=== PATIENT | female | born 1965 | race Caucasian/White ===

== ENCOUNTER 2017-05-16 23:11 | Emergency (ER) | payer OTHER ==
[2017-05-16 23:33] VITALS: TEMP 99.1; BMI 19.3
--- NOTE | 2017-05-16 23:40 | PDOC ---
History of Present Illness - General History Source: Patient Exam Limitations: No Limitations <Claudia Solis - Last Filed: 05/16/17 23:53> - General History Source: Patient <Max Hutson - Last Filed: 05/17/17 01:18> - General Chief Complaint: Palpitations Stated Complaint: CHEST PAIN Time Seen by Provider: 05/16/17 23:26 - History of Present Illness Initial Comments: The patient is a 51 yo F with a PMHx of hyperthyroidism complaining of chest discomfort since earlier today. The patient notes the pain ranges from the L sternal border to L arm.The patient reports during the last 6 months she has had pretty stressful triggers. She notes that shes recently had poor eating habits. She also notes shes been over consuming ETOH and not resting well. She also endorses nausea and slight SOB. She reports she is compliant with her thyroid medications. Upon evaluation, patient reports she is still having slight discomfort. The patient denies vomiting, diarrhea and abdominal pain. The patient denies lightheadedness and palpitations. (Claudia Solis) Past History <Claudia Solis - Last Filed: 05/16/17 23:53> - Past Medical History Thyroid Disease: Yes - Psycho/Social/Smoking Cessation Hx Anxiety: No Suicidal Ideation: No Smoking Status: No Smoking History: Never smoked Have you smoked in the past 12 months: No Number of Cigarettes Smoked Daily: 0 Information on smoking cessation initiated: No Hx Alcohol Use: No Drug/Substance Use Hx: No <Max Hutson - Last Filed: 05/17/17 01:18> - Past Medical History Allergies/Adverse Reactions: Allergies Allergy/AdvReac Type Severity Reaction Status Date / Time azithromycin [From Zithromax] Allergy Rash Verified 05/16/17 23:31 cefprozil [Cefprozil] Allergy Rash Verified 05/16/17 23:31 Home Medications: Ambulatory Orders Unobtainable Home Med List 0 dose .ROUTE UTDICT 05/10/14 Review of Systems - Review of Systems Able to Perform ROS?: Yes <Claudia Solis - Last Filed: 05/16/17 23:53> <OsieljassraMax - Last Filed: 05/17/17 01:18> - Review of Systems Comments:: CONSTITUTIONAL: Absent: fever, chills, diaphoresis, generalized weakness, malaise, loss of appetite HEENT: Absent: rhinorrhea, nasal congestion, throat pain, throat swelling, difficulty swallowing, mouth swelling, ear pain, eye pain, visual Changes CARDIOVASCULAR: +chest pain Absent: syncope, palpitations, irregular heart rate, lightheadedness, peripheral edema RESPIRATORY: +SOB Absent: cough, dyspnea with exertion, orthopnea, wheezing, stridor, hemoptysis GASTROINTESTINAL: +nausea Absent: abdominal pain, abdominal distension, vomiting, diarrhea, constipation, melena, hematochezia GENITOURINARY: Absent: dysuria, frequency, urgency, hesitancy, hematuria, flank pain, genital pain MUSCULOSKELETAL: Absent: myalgia, arthralgia, joint swelling SKIN: Absent: rash, itching, pallor NEUROLOGIC: Absent: headache, focal weakness or paresthesias, dizziness, unsteady gait, seizure, mental status changes, bladder or bowel incontinence PSYCHIATRIC: Absent: anxiety, depression, suicidal or homicidal ideation, hallucinations. (Claudia Solis) *Physical Exam <Claudia Solis - Last Filed: 05/16/17 23:53> <Max Hutson - Last Filed: 05/17/17 01:18> - Vital Signs Last Vital Signs Temp Pulse Resp BP Pulse Ox 99.1 F 84 14 120/82 100 05/16/17 23:31 05/16/17 23:31 05/16/17 23:31 05/16/17 23:31 05/16/17 23:31 - Physical Exam Comments: GENERAL: Well developed, well nourished. Awake and alert. No acute distress. HEENT: Normocephalic, atraumatic. PERRLA, EOMI. No conjunctival pallor. Sclera are non- icteric. Moist mucous membranes. Oropharynx is clear. NECK: Supple. Full ROM. No JVD. Carotid pulses 2+ and symmetric, without bruits. No thyromegaly. No lymphadenopathy. CARDIOVASCULAR: Regular rate and rhythm. No murmurs, rubs, or gallops. Distal pulses are 2+ and symmetric. PULMONARY: No evidence of respiratory distress. Lungs clear to auscultation bilaterally. No wheezing, rales or rhonchi. ABDOMINAL: Soft. Non-tender. Non-distended. No rebound or guarding. No organomegaly. Normoactive bowel sounds. MUSCULOSKELETAL Normal range of motion at all joints. No bony deformities or tenderness. No CVA tenderness. EXTREMITIES: No cyanosis. No clubbing. No edema. No calf tenderness. SKIN: Warm and dry. Normal capillary refill. No rashes. No jaundice. NEUROLOGICAL: no gross focal neurological deficits. PSYCHIATRIC: Cooperative. Good eye contact. Appropriate mood and affect. (ShayjonnaClaudia) Heart Score/ECG Review <Claudia Solis - Last Filed: 05/16/17 23:53> <Max Hutson - Last Filed: 05/17/17 01:18> #1 NSR @ [address] and T wave abnormality. Abnormal ECG. (Shayjonna Claudia) ED Treatment Course - LABORATORY CBC & Chemistry Diagram: 05/17/17 00:01 05/17/17 00:01 <Max Hutson - Last Filed: 05/17/17 01:18> - ADDITIONAL ORDERS Additional order review: Laboratory Results 05/17/17 05/17/17 05/17/17 00:01 00:01 00:01 INR 1.12 Sodium 138 Potassium 4.4 D Chloride 102 Carbon Dioxide 29 Anion Gap 7 L BUN 10 D Creatinine 0.6 Creat Clearance w eGFR > 60 Random Glucose 134 H D Calcium 8.9 Magnesium 2.3 Total Bilirubin 0.8 D AST 18 ALT 23 Alkaline Phosphatase 50 D Creatine Kinase 48 Troponin I < 0.02 Total Protein 6.8 Albumin 3.8 Lipase 99 Serum , Qual Negative 05/17/17 00:01 RBC 3.89 MCV 93.9 MCHC 33.0 RDW 13.8 MPV 8.3 Neutrophils % 65.8 D Lymphocytes % 22.7 D Monocytes % 9.1 Eosinophils % 1.7 Basophils % 0.7 - RADIOLOGY Radiology Studies Ordered: Category Date Time Status CHEST X-RAY PORTABLE* [RAD] Stat Radiology 05/16/17 23:41 Taken - Medications Given in the ED: ED Medications Discontinued Medications Generic Name Dose Route Start Last Admin Trade Name Freq PRN Reason Stop Dose Admin Famotidine/Sodium Chloride 20 50 mls @ 100 mls/hr 05/16/17 23:41 05/17/17 00:03 mg/ Miscellaneous IVPB 05/17/17 00:10 100 mls/hr ONCE ONE Administration Sodium Chloride 1,000 mls @ 1,000 mls/hr 05/16/17 23:42 05/17/17 00:03 Normal Saline - IV 05/17/17 00:41 1,000 mls/hr ASDIR STA Administration Medical Decision Making <ChrisClaudia nelson - Last Filed: 05/16/17 23:53> <Max Hutson - Last Filed: 05/17/17 01:18> - Medical Decision Making 05/17/17 01:12 Dr. Hutson: The scribe's documentation has been prepared under my direction and personally reviewed by me in its entirery. I confirm that the note above accurately reflects all work, treatment, procedures, and medical decision making performed by me. Pt feeling better. Hemodynamically stable. NO St twave changes on EKG. CE negative. Pt will be discharge and will follow up with medicine for re- evaluation. (Max Hutson) *DC/Admit/Observation/Transfer <IrmaClaudia - Last Filed: 05/16/17 23:53> - Discharge Dispostion Admit: No <Max Hutson - Last Filed: 05/17/17 01:18> Diagnosis at time of Disposition: Chest pain Qualifiers: Chest pain type: unspecified Qualified Code(s): R07.9 - Chest pain, unspecified - Discharge Dispostion Disposition: HOME Condition at time of disposition: Stable - Referrals Referrals: Monroe Barber MD [Staff Physician] - Devora Holden MD [Staff Physician] - - Patient Instructions Printed Discharge Instructions: DI for Chest Pain - Attestations Scribe Attestion: Documentation prepared by Claudia Solis, acting as medical affairs leader for Max Hutson MD/DO. (Claudia Solis)
[2017-05-16] MEDS ORDERED: FAMOTIDINE 20 MG/50 ML IVPB 20 MG in PREMIX 50 IVPB ONE (23:41)
[2017-05-16] MEDS ORDERED: SODIUM CHLORIDE 1,000 ML IV STA (23:42)
[2017-05-16] MEDS ORDERED: FAMOTIDINE 20 MG/50 ML IVPB 50 ML IVPB ONE (23:52)
[2017-05-17 00:19] LABS: BASOPHIL 0.7 % (0-2.0); EOSINOPHIL 1.7 % (0-4.5); MEAN CELL VOLUME 93.9 fl (80-96); MEAN PLT VOLUME 8.3 fl (7.5-11.1); NEUTROPHILS 65.8 % (42.8-82.8); PLATELET COUNT 203 K/MM3 (134-434); RDW 13.8 % (11.6-15.6); WHITE BLOOD COUNT 4.1 K/mm3 (4.0-10.0)
[2017-05-17 00:35] LABS: INR 1.12 (0.82-1.09); PROTHROMBIN TIME (PATIENT) 12.4 SEC (9.98-11.88)
[2017-05-17 00:42] LABS: ALBUMIN 3.8 g/dl (3.4-5.0); ANION GAP 7 (8-16); BILIRUBIN,TOTAL 0.8 mg/dL (0.2-1.0); CALCIUM 8.9 mg/dL (8.5-10.1); CO2 29 mmol/L (21-32); CREATININE 0.6 mg/dL (0.55-1.02); GLUCOSE,RANDOM 134 mg/dL (74-106); MAGNESIUM 2.3 mg/dL (1.8-2.4); SGOT/AST 18 U/L (15-37); SGPT/ALT 23 U/L (12-78); TOT PROT 6.8 g/dl (6.4-8.2)
[2017-05-17 00:45] LABS: ALK PHOS 50 U/L (45-117); TROPONIN I < 0.02 ng/ml (0.00-0.05)
[2017-05-17] MEDS ORDERED: PANTOPRAZOLE 40 MG TABLET (FP) PO ONE (01:11)
[2017-05-17] MEDS ORDERED: PANTOPRAZOLE 40 MG TABLET (FP) ONE (01:16)
[2017-05-17] MEDS ORDERED: ALPRAZolam 0.25 MG TABLET PO ONE (01:19)
[2017-05-17] MEDS ORDERED: ALPRAZolam 0.25 MG TABLET ONE (02:20)
[2017-05-17 02:37] VITALS: BP 108/66; PULSE 77
--- NOTE | 2017-05-17 16:33 | EKG ---
Test Reason : Blood Pressure : / mmHG Vent. Rate : 083 BPM Atrial Rate : 083 BPM P-R Int : 114 ms QRS Dur : 076 ms QT Int : 384 ms P-R-T Axes : 028 085 028 degrees QTc Int : 451 ms NORMAL SINUS RHYTHM NONSPECIFIC ST AND T WAVE ABNORMALITY ABNORMAL ECG WHEN COMPARED WITH ECG OF 10-MAY-2014 04:59, NO SIGNIFICANT CHANGE WAS FOUND Confirmed by ROSALVA SOMMERS MD ([id number]) on 05/17/2017 4:33:44 PM Referred By: Confirmed By:ROSALVA SOMMERS MD
== END 2017-05-17 02:33 | disposition home or self-care (01) ==
LOC: JER 23:11
PROC: 3E033GC Introduction of Other Therapeutic Substance into Peripheral Vein, Percutaneous Approach (ICD-10-PCS; principal; 2017-05-16)
PROC: 3E0337Z Introduction of Electrolytic and Water Balance Substance into Peripheral Vein, Percutaneous Approach (ICD-10-PCS; 2017-05-16)
DX: R07.9 Chest pain, unspecified (principal); E05.90 Thyrotoxicosis, unspecified without thyrotoxic crisis or storm
CPT/HCPCS: 36415; 71010-TC; 80053; 82550; 83690; 83735; 84484; 84703; 85025; 85610; 93005; 93010; 99282-25

== ENCOUNTER 2020-06-24 14:56 | Emergency (ER) | payer OTHER ==
[2020-06-24 15:01] VITALS: BP 102/55; PULSE 87; TEMP 98.3; BMI 19.5
[2020-06-24] MEDS ORDERED: NAPROXEN 500 MG TABLET PO ONE (15:33)
[2020-06-24] MEDS ORDERED: NAPROXEN 500 MG TABLET ONE (15:36)
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
== END 2020-06-24 15:41 | disposition home or self-care (01) ==
LOC: JERFT 14:56
DX: S13.4XXA Sprain of ligaments of cervical spine, initial encounter (principal); V89.2XXA Person injured in unspecified motor-vehicle accident, traffic, initial encounter
CPT/HCPCS: 99283-25

== ENCOUNTER 2022-03-14 13:30 | Inpatient (IN) | payer OTHER ==
[2022-03-14] MEDS ORDERED: SODIUM CHLORIDE 0.9% 500 ML INFUS.BAG IV ONE (14:21)
[2022-03-14] MEDS ORDERED: ACETAMINOPHEN 1000 MG/100 ML BAG IVPB ONE ×2 (14:21→20:40)
[2022-03-14] MEDS ORDERED: ACETAMINOPHEN INJECTION 100 ML IVPB ONE ×2 (15:05→20:51)
[2022-03-14 15:15] LABS: BASO % 0.4 % (0-2.0); EOS % 0.9 % (0-4.5); HEMATOCRIT 37.8 % (32.4-45.2); HEMOGLOBIN 12.6 GM/dL (10.7-15.3); LYMPH % 13.6 % (8-40); MCH 30.4 pg (25.7-33.7); MCHC 33.4 g/dl (32.0-36.0); MEAN CELL VOLUME 91.1 fl (80-96); MEAN PLT VOLUME 7.9 fl (7.5-11.1); NEUT % 78.1 % (42.8-82.8); PLATELET COUNT 218 10^3/uL (134-434); RBC 4.15 M/mm3 (3.60-5.2); RDW 12.9 % (11.6-15.6); WHITE BLOOD COUNT 7.5 K/mm3 (4.0-10.0)
[2022-03-14 15:45] LABS: ALBUMIN 3.7 g/dl (3.4-5.0); CALCIUM 9.1 mg/dL (8.5-10.1)
[2022-03-14 15:47] LABS: CREATININE 0.6 mg/dL (0.55-1.3)
[2022-03-14 15:49] LABS: BILIRUBIN,TOTAL 0.8 mg/dL (0.2-1); TOT PROT 6.6 g/dl (6.4-8.2)
[2022-03-14 16:42] LABS: URINE APPEARANCE CLEAR; URINE BILIRUBIN NEGATIVE (NEGATIVE); URINE COLOR YELLOW; URINE GLUCOSE (UA) NEGATIVE (NEGATIVE); URINE KETONE TRACE (NEGATIVE); URINE LEUK ESTERASE NEGATIVE (NEGATIVE); URINE NITRITE NEGATIVE (NEGATIVE); URINE PROTEIN NEGATIVE (NEGATIVE); URINE UROBILINOGEN 0.2 mg/dL (0.2-1.0)
[2022-03-14] MEDS ORDERED: ERTAPENEM SODIUM 1 GM in SODIUM CHLORIDE 50 ML IVPB ONE (20:02)
[2022-03-14] MEDS ORDERED: ERTAPENEM SODIUM 1 GM VIAL ONE (20:29)
[2022-03-14] MEDS ORDERED: ACETAMINOPHEN 1000 MG/100 ML BAG IVPB PRN (22:04)
[2022-03-14] MEDS ORDERED: FAMOTIDINE 20 MG/50 ML IVPB 20 MG/50 ML MG IVPB ONE (22:07)
[2022-03-14] MEDS ORDERED: FAMOTIDINE 10 MG/ML VIAL IVPB ONE (22:44)
[2022-03-14] MEDS: SODIUM CHLORIDE 1,000 ML IV SCH (22:58)
[2022-03-15 04:39] VITALS: BMI 20.3
[2022-03-15 08:44] LABS: BASO % 0.2 % (0-2.0); EOS % 1.5 % (0-4.5); HEMATOCRIT 34.3 % (32.4-45.2); HEMOGLOBIN 11.3 GM/dL (10.7-15.3); LYMPH % 17.7 % (8-40); MCH 30.4 pg (25.7-33.7); MEAN PLT VOLUME 7.8 fl (7.5-11.1); MONO % 6.4 % (3.8-10.2); NEUT % 74.2 % (42.8-82.8); PLATELET COUNT 178 10^3/uL (134-434); RBC 3.73 M/mm3 (3.60-5.2); WHITE BLOOD COUNT 4.9 K/mm3 (4.0-10.0)
[2022-03-15] MEDS ORDERED: TRIMETHOBENZAMIDE HCL 200MG/2ML INJ IM PRN (08:53)
[2022-03-15 09:04] LABS: ACTIVATED PTT 31.7 SECONDS (25.2-36.5); INR 1.24 (0.83-1.09); PROTHROMBIN TIME (PATIENT) 14.3 SEC (9.7-13.0)
[2022-03-15 09:07] LABS: BLOOD UREA NITROGEN 14.8 mg/dL (7-18)
[2022-03-15 09:08] LABS: ALBUMIN 3.3 g/dl (3.4-5.0); CALCIUM 8.4 mg/dL (8.5-10.1); MAGNESIUM 2.1 mg/dL (1.8-2.4)
[2022-03-15 09:10] LABS: PHOSPHOROUS 3.7 mg/dL (2.5-4.9)
[2022-03-15 09:11] LABS: CREATININE 0.5 mg/dL (0.55-1.3)
[2022-03-15 09:12] LABS: TOT PROT 6.1 g/dl (6.4-8.2)
[2022-03-15] MEDS: PANTOPRAZOLE SODIUM 40 MG VIAL IVPUSH SCH (11:19)
[2022-03-15] MEDS: ERTAPENEM SODIUM 1 GM in SODIUM CHLORIDE 50 ML IVPB SCH (17:59)
[2022-03-15] MEDS ORDERED: DEXTROSE 50%-WATER - 25 GM/50 ML VIAL IVPUSH ONE (18:18)
[2022-03-15] MEDS ORDERED: DEXTROSE 10%-WATER 500 ML INFUS.BAG IV ONE (18:22)
[2022-03-15] MEDS ORDERED: DEXTROSE 10%-WATER - 1,000 ML IV SCH (18:30)
[2022-03-15] MEDS ORDERED: ALPRAZolam 1 MG TABLET PO ONE (18:43)
[2022-03-15] MEDS ORDERED: PROCHLORPERAZINE INJECTION 10 MG/2 ML VIAL IVPB ONE (19:20)
[2022-03-15] MEDS: DEXTROSE 5%-NORMAL SALINE 1,000 ML IV SCH (21:56)
[2022-03-16] MEDS: SODIUM CHLORIDE 1,000 ML IV SCH (03:42)
[2022-03-16 09:25] LABS: BASO % 0.2 % (0-2.0); EOS % 2.4 % (0-4.5); HEMATOCRIT 33.6 % (32.4-45.2); HEMOGLOBIN 11.5 GM/dL (10.7-15.3); MCHC 34.4 g/dl (32.0-36.0); MEAN CELL VOLUME 90.2 fl (80-96); MEAN PLT VOLUME 7.8 fl (7.5-11.1); NEUT % 55.4 % (42.8-82.8); PLATELET COUNT 202 10^3/uL (134-434); RBC 3.72 M/mm3 (3.60-5.2); RDW 12.8 % (11.6-15.6); WHITE BLOOD COUNT 3.6 K/mm3 (4.0-10.0)
[2022-03-16 09:47] LABS: CALCIUM 8.6 mg/dL (8.5-10.1)
[2022-03-16 09:49] LABS: ALBUMIN 3.2 g/dl (3.4-5.0); BLOOD UREA NITROGEN 7.7 mg/dL (7-18); MAGNESIUM 2.2 mg/dL (1.8-2.4)
[2022-03-16 09:51] LABS: CREATININE 0.6 mg/dL (0.55-1.3); PHOSPHOROUS 2.8 mg/dL (2.5-4.9)
[2022-03-16] MEDS: PANTOPRAZOLE SODIUM 40 MG VIAL IVPUSH SCH ×2 (09:51→11:53)
[2022-03-16 09:52] LABS: BILIRUBIN,TOTAL 0.7 mg/dL (0.2-1); TOT PROT 5.8 g/dl (6.4-8.2)
[2022-03-16] MEDS: ERTAPENEM SODIUM 1 GM in SODIUM CHLORIDE 50 ML IVPB SCH (09:52)
[2022-03-16] MEDS: DEXTROSE 5%-NORMAL SALINE 1,000 ML IV SCH ×2 (09:52→17:00)
[2022-03-16] MEDS ORDERED: THYROID 60 MG TABLET PO SCH ×2 (10:00)
[2022-03-16] MEDS ORDERED: DEXTROSE 5%-NORMAL SALINE 1,000 ML IV SCH (11:07)
[2022-03-16] MEDS: THYROID 30 MG TABLET PO SCH (13:34)
[2022-03-16 17:57] LABS: EPI CELLS >36 /uL (0-25.1); HYALINE CASTS 1 /uL (0-3.1); PH,URINE 5.5 (5.0-8.0); URINE APPEARANCE CLEAR; URINE BACTERIA 19 /uL (0-1359); URINE BILIRUBIN NEGATIVE (NEGATIVE); URINE COLOR YELLOW; URINE GLUCOSE (UA) NEGATIVE (NEGATIVE); URINE KETONE NEGATIVE (NEGATIVE); URINE LEUK ESTERASE TRACE (NEGATIVE); URINE NITRITE NEGATIVE (NEGATIVE); URINE PROTEIN NEGATIVE (NEGATIVE); URINE RBC 4 /uL (0-23.9); URINE UROBILINOGEN 0.2 mg/dL (0.2-1.0); URINE WBC 26 /uL (0-25.8)
[2022-03-17] MEDS: DEXTROSE 5%-NORMAL SALINE 1,000 ML IV SCH (03:32)
[2022-03-17] MEDS: THYROID 30 MG TABLET PO SCH (06:49)
[2022-03-17 09:22] LABS: BASO % 0.5 % (0-2.0); EOS % 2.6 % (0-4.5); HEMOGLOBIN 10.9 GM/dL (10.7-15.3); LYMPH % 36.3 % (8-40); MCH 30.8 pg (25.7-33.7); MCHC 34.1 g/dl (32.0-36.0); MEAN CELL VOLUME 90.4 fl (80-96); MEAN PLT VOLUME 8.1 fl (7.5-11.1); MONO % 8.1 % (3.8-10.2); NEUT % 52.5 % (42.8-82.8); PLATELET COUNT 190 10^3/uL (134-434); RBC 3.54 M/mm3 (3.60-5.2); RDW 12.9 % (11.6-15.6); WHITE BLOOD COUNT 3.1 K/mm3 (4.0-10.0)
[2022-03-17 10:01] LABS: CALCIUM 8.1 mg/dL (8.5-10.1)
[2022-03-17 10:05] LABS: CREATININE 0.5 mg/dL (0.55-1.3)
[2022-03-17] MEDS: PANTOPRAZOLE SODIUM 40 MG VIAL IVPUSH SCH (10:15)
[2022-03-17] MEDS: ERTAPENEM SODIUM 1 GM in SODIUM CHLORIDE 50 ML IVPB SCH (10:30)
[2022-03-17 13:38] VITALS: BP 111/74; PULSE 70; TEMP 98.7
== END 2022-03-17 19:06 | disposition home or self-care (01) | DRG 244 ==
LOC: JER 13:30 → JERBED 20:56 → OBSVTOIN 22:01 → J5S 03-15 03:53
PROVIDERS: ADMIT Hospitalist; ATTEND Internal Medicine
DX: K57.20 Diverticulitis of large intestine with perforation and abscess without bleeding (principal); E03.9 Hypothyroidism, unspecified; F41.9 Anxiety disorder, unspecified; R10.2 Pelvic and perineal pain; R10.32 Left lower quadrant pain; E04.1 Nontoxic single thyroid nodule; E16.2 Hypoglycemia, unspecified; R94.31 Abnormal electrocardiogram [ECG] [EKG]
CPT/HCPCS: 0241U-QW; 36415; 74018-TC-FY; 74176-TC; 74177-TC; 80048; 80053; 81003; 82962; 83605; 83690; 83735; 84100; 85025; 85610; 85730; 86140; 87086; 93005; 93010; 99285-25; G0378

== ENCOUNTER 2022-03-23 17:06 | Emergency (ER) | payer OTHER ==
[2022-03-23 17:35] VITALS: BP 100/67; PULSE 82; TEMP 98.2; BMI 20.4
== END 2022-03-23 21:59 | disposition home or self-care (01) ==
LOC: JER 17:06
DX: I82.611 Acute embolism and thrombosis of superficial veins of right upper extremity (principal)
CPT/HCPCS: 76882-TC-RT-FY; 99284-25

== ENCOUNTER 2023-03-14 22:25 | Emergency (ER) | payer OTHER ==
[2023-03-14 22:41] VITALS: BMI 18.9
[2023-03-14] MEDS ORDERED: FAMOTIDINE 20 MG/50 ML IVPB 20 MG/50 ML MG IVPB ONE ×2 (23:22→23:58)
[2023-03-14] MEDS ORDERED: SODIUM CHLORIDE 500 ML IV STA (23:22)
[2023-03-15 00:33] LABS: POTASSIUM 5.1 mmol/L (3.5-5.1)
[2023-03-15 00:35] LABS: ALBUMIN 3.7 g/dl (3.4-5.0); BLOOD UREA NITROGEN 10.7 mg/dL (7-18); CALCIUM 9.1 mg/dL (8.5-10.1)
[2023-03-15 00:38] LABS: CREATININE 0.6 mg/dL (0.55-1.3)
[2023-03-15 00:40] LABS: BILIRUBIN,TOTAL 0.5 mg/dL (0.2-1); TOT PROT 7.1 g/dl (6.4-8.2)
[2023-03-15 00:49] LABS: BASO % 0.4 % (0-2.0); HEMATOCRIT 38.9 % (32.4-45.2); HEMOGLOBIN 13.3 GM/dL (10.7-15.3); LYMPH % 33.2 % (8-40); MCH 30.8 pg (25.7-33.7); MCHC 34.3 g/dl (32.0-36.0); MEAN CELL VOLUME 89.7 fl (80-96); MEAN PLT VOLUME 9.4 fl (7.5-11.1); MONO % 7.3 % (3.8-10.2); NEUT % 56.1 % (42.8-82.8); PLATELET COUNT 159 10^3/uL (134-434); RBC 4.34 M/mm3 (3.60-5.2); RDW 14.2 % (11.6-15.6); WHITE BLOOD COUNT 5.3 K/mm3 (4.0-10.0)
[2023-03-15 02:04] VITALS: TEMP 97.8
[2023-03-15 03:08] VITALS: BP 102/64; PULSE 74; RESP 15
== END 2023-03-15 03:10 | disposition home or self-care (01) ==
LOC: JER 22:25
PROC: 3E033GC Introduction of Other Therapeutic Substance into Peripheral Vein, Percutaneous Approach (ICD-10-PCS; principal; 2023-03-15)
DX: R07.89 Other chest pain (principal); R12 Heartburn; R20.2 Paresthesia of skin; R11.0 Nausea; U07.1 COVID-19; F41.9 Anxiety disorder, unspecified
CPT/HCPCS: 0241U-QW; 36415; 71046-TC-FY; 80053; 84436; 84443; 84484; 85025; 85379; 93005; 93010; 99285-25

== ENCOUNTER 2023-04-17 22:12 | Emergency (ER) | payer OTHER ==
[2023-04-17 22:21] VITALS: BP 106/71; PULSE 77; RESP 15; TEMP 98.1; BMI 19.5
[2023-04-18] MEDS ORDERED: ACETAMINOPHEN 1000 MG/100 ML BAG IVPB ONE (00:11)
[2023-04-18] MEDS ORDERED: LACTATED RINGERS SOLUTION 1000 ML INFUS.BAG IV ONE (00:11)
[2023-04-18] MEDS ORDERED: ONDANSETRON 4 MG/2 ML VIAL IVPUSH ONE (00:11)
[2023-04-18] MEDS ORDERED: MAG HYDROX/AL HYDROX/SIMETH 30 ML UNIT-DOSE CUP PO ONE (00:11)
[2023-04-18] MEDS ORDERED: SUCRALFATE 1 GM TABLET (FP) PO ONE (00:11)
[2023-04-18] MEDS ORDERED: FAMOTIDINE 10 MG TABLET PO ONE (00:11)
[2023-04-18] MEDS ORDERED: FAMOTIDINE 20 MG TABLET ONE (00:33)
[2023-04-18] MEDS ORDERED: SUCRALFATE 1 GM TABLET (FP) ONE (00:33)
[2023-04-18] MEDS ORDERED: MAG HYDROX/AL HYDROX/SIMETH 30 ML UNIT-DOSE CUP ONE (00:33)
[2023-04-18] MEDS ORDERED: ONDANSETRON 4 MG/2 ML VIAL ONE (00:33)
[2023-04-18 00:39] LABS: BASO % 1.1 % (0-2.0); EOS % 2.8 % (0-4.5); HEMATOCRIT 38.3 % (32.4-45.2); HEMOGLOBIN 13.1 GM/dL (10.7-15.3); LYMPH % 33.1 % (8-40); MCH 30.1 pg (25.7-33.7); MCHC 34.1 g/dl (32.0-36.0); MEAN CELL VOLUME 88.4 fl (80-96); MEAN PLT VOLUME 7.5 fl (7.5-11.1); MONO % 9.6 % (3.8-10.2); NEUT % 53.4 % (42.8-82.8); PLATELET COUNT 230 10^3/uL (134-434); RBC 4.34 M/mm3 (3.60-5.2); RDW 14.8 % (11.6-15.6)
[2023-04-18 01:00] LABS: CHLORIDE 108 mmol/L (98-107); SODIUM 142 mmol/L (136-145)
[2023-04-18 01:05] LABS: ALBUMIN 3.7 g/dl (3.4-5.0); BLOOD UREA NITROGEN 12.1 mg/dL (7-18); CALCIUM 9.1 mg/dL (8.5-10.1); CO2 28 mmol/L (21-32); GLUCOSE,RANDOM 84 mg/dL (74-106)
[2023-04-18 01:07] LABS: CREATININE 0.6 mg/dL (0.55-1.3); SGOT/AST 40 U/L (15-37); SGPT/ALT 31 U/L (13-61)
[2023-04-18 01:08] LABS: BILIRUBIN,TOTAL 0.5 mg/dL (0.2-1); TOT PROT 7.1 g/dl (6.4-8.2)
[2023-04-18 01:09] LABS: ALK PHOS 59 U/L (45-117)
[2023-04-18 01:11] LABS: N-TERMINAL BNP 52.6 pg/ml (5-125)
[2023-04-18 01:12] LABS: ANION GAP 6 MMOL/L (8-16); POTASSIUM 6.1 mmol/L (3.5-5.1)
== END 2023-04-18 02:10 | disposition left against medical advice (07) ==
LOC: JER 22:12
PROC: 3E033GC Introduction of Other Therapeutic Substance into Peripheral Vein, Percutaneous Approach (ICD-10-PCS; principal; 2023-04-18)
DX: R07.9 Chest pain, unspecified (principal); R42 Dizziness and giddiness; R20.2 Paresthesia of skin; R11.0 Nausea; R10.13 Epigastric pain
CPT/HCPCS: 36415; 71046-TC-FY; 80053; 83880; 84484; 85025; 93005; 93010; 99285-25

== ENCOUNTER 2023-09-20 09:22 | Emergency (ER) | payer OTHER ==
[2023-09-20 09:41] VITALS: BP 102/68; PULSE 68; RESP 16; TEMP 98.1; BMI 19.1
== END 2023-09-20 10:07 | disposition home or self-care (01) ==
LOC: FER 09:22
DX: H00.012 Hordeolum externum right lower eyelid (principal); R10.30 Lower abdominal pain, unspecified; B37.31 Acute candidiasis of vulva and vagina; L29.2 Pruritus vulvae
CPT/HCPCS: 99283-25

== ENCOUNTER 2023-10-21 08:55 | Emergency (ER) | payer OTHER ==
[2023-10-21 09:02] VITALS: BP 107/71; PULSE 86; RESP 16; TEMP 98; BMI 19.5
[2023-10-21] MEDS ORDERED: FLUCONAZOLE 150 MG TABLET PO ONE ×2 (09:26→09:32)
[2023-10-21] MEDS ORDERED: SULFAMETHOXAZOLE/TRIMETHOPRIM 800MG/160MG D.S. TABLET PO ONE (09:58)
[2023-10-21] MEDS ORDERED: SULFAMETHOXAZOLE/TRIMETHOPRIM 800MG/160MG D.S. TABLET ONE (10:02)
[2023-10-21 10:08] LABS: EPITHELIAL CELLS 0-5 /hpf
== END 2023-10-21 10:23 | disposition home or self-care (01) ==
LOC: FER 08:55
DX: L29.2 Pruritus vulvae (principal); R30.0 Dysuria; L53.9 Erythematous condition, unspecified; N39.0 Urinary tract infection, site not specified; R35.0 Frequency of micturition; R39.15 Urgency of urination
CPT/HCPCS: 81003; 81015; 87086; 99283-25

== ENCOUNTER 2024-04-19 17:46 | Emergency (ER) | payer OTHER ==
[2024-04-19 17:54] VITALS: RESP 16; TEMP 98.4; BMI 20.1
[2024-04-19 19:55] LABS: URINE APPEARANCE CLEAR; URINE BILIRUBIN NEGATIVE (NEGATIVE); URINE COLOR YELLOW; URINE GLUCOSE (UA) NEGATIVE (NEGATIVE); URINE KETONE TRACE (NEGATIVE); URINE LEUK ESTERASE NEGATIVE (NEGATIVE); URINE NITRITE NEGATIVE (NEGATIVE); URINE PROTEIN NEGATIVE (NEGATIVE); URINE UROBILINOGEN 0.2 mg/dL (0.2-1.0)
[2024-04-19] MEDS ORDERED: ACETAMINOPHEN INJECTION 100 ML IVPB ONE (19:55)
[2024-04-19] MEDS ORDERED: ONDANSETRON 4 MG/2 ML VIAL ONE (19:55)
[2024-04-19] MEDS ORDERED: MAG HYDROX/AL HYDROX/SIMETH 30 ML UNIT-DOSE CUP ONE (19:55)
[2024-04-19] MEDS ORDERED: FAMOTIDINE 20 MG/50 ML IVPB 20 MG/50 ML MG IVPB ONE (19:55)
[2024-04-19 19:59] LABS: BASO % 0.3 % (0-2.0); EOS % 0.2 % (0-4.5); HEMATOCRIT 38.3 % (32.4-45.2); HEMOGLOBIN 12.7 GM/dL (10.7-15.3); LYMPH % 16.8 % (8-40); MCH 30.5 pg (25.7-33.7); MCHC 33.1 g/dl (32.0-36.0); MEAN CELL VOLUME 92.1 fl (80-96); MEAN PLT VOLUME 7.3 fl (7.5-11.1); NEUT % 77.7 % (42.8-82.8); PLATELET COUNT 233 10^3/uL (134-434); RBC 4.16 M/mm3 (3.60-5.2); RDW 14.2 % (11.6-15.6); WHITE BLOOD COUNT 7.6 K/mm3 (4.0-10.0)
[2024-04-19 20:02] LABS: INR 0.98 (0.83-1.09); PROTHROMBIN TIME (PATIENT) 11.3 SEC (9.7-13.0)
[2024-04-19] MEDS: FAMOTIDINE 20 MG/50 ML IVPB 20 MG/50 ML MG IVPB ONE (20:14)
[2024-04-19] MEDS: MAG HYDROX/AL HYDROX/SIMETH 30 ML UNIT-DOSE CUP PO ONE (20:14)
[2024-04-19] MEDS: SODIUM CHLORIDE 1,000 ML IV STA (20:15)
[2024-04-19] MEDS: ONDANSETRON 4 MG/2 ML VIAL IVPUSH ONE (20:15)
[2024-04-19] MEDS: ACETAMINOPHEN 1000 MG/100 ML BAG IVPB ONE (20:26)
[2024-04-19 20:39] LABS: POTASSIUM 3.9 mmol/L (3.5-5.1)
[2024-04-19 20:42] LABS: ALBUMIN 3.8 g/dl (3.4-5.0); BLOOD UREA NITROGEN 10.3 mg/dL (7-18)
[2024-04-19 20:45] LABS: CREATININE 0.5 mg/dL (0.55-1.3)
[2024-04-19 20:47] LABS: BILIRUBIN,TOTAL 0.7 mg/dL (0.2-1); TOT PROT 6.8 g/dl (6.4-8.2)
[2024-04-20 00:25] VITALS: BP 115/70; PULSE 70
== END 2024-04-20 00:26 | disposition home or self-care (01) ==
LOC: JER 17:46
PROC: 3E033GC Introduction of Other Therapeutic Substance into Peripheral Vein, Percutaneous Approach (ICD-10-PCS; principal; 2024-04-19)
PROC: 3E033NZ Introduction of Analgesics, Hypnotics, Sedatives into Peripheral Vein, Percutaneous Approach (ICD-10-PCS; 2024-04-19)
DX: K57.32 Diverticulitis of large intestine without perforation or abscess without bleeding (principal); R10.13 Epigastric pain; R11.0 Nausea; R19.7 Diarrhea, unspecified; K62.5 Hemorrhage of anus and rectum; L25.9 Unspecified contact dermatitis, unspecified cause; Z20.822 Contact with and (suspected) exposure to COVID-19
CPT/HCPCS: 0241U-QW; 36415; 74177-TC; 80053; 81003; 82272; 83605; 83690; 84484; 85025; 85610; 85730; 86850; 86900; 86901; 87086; 99285-25; J0131; Q9967

== ENCOUNTER 2024-04-25 16:30 | Observation (INO) | payer OTHER ==
[2024-04-25 16:49] VITALS: BMI 19.9
[2024-04-25] MEDS ORDERED: ACETAMINOPHEN INJECTION 100 ML IVPB ONE (17:38)
[2024-04-25] MEDS: SODIUM CHLORIDE 0.9% 500 ML INFUS.BAG IV ONE (17:58)
[2024-04-25] MEDS: ACETAMINOPHEN 1000 MG/100 ML BAG IVPB ONE (17:59)
[2024-04-25 18:08] LABS: BASO % 0.3 % (0-2.0); EOS % 0.3 % (0-4.5); EPI CELLS 3 /uL (0-25.1); HEMOGLOBIN 13.2 GM/dL (10.7-15.3); HYALINE CASTS 0 /uL (0-3.1); LYMPH % 10.3 % (8-40); MCHC 33.8 g/dl (32.0-36.0); MEAN CELL VOLUME 91.6 fl (80-96); MEAN PLT VOLUME 7.3 fl (7.5-11.1); MONO % 8.7 % (3.8-10.2); NEUT % 80.4 % (42.8-82.8); PLATELET COUNT 240 10^3/uL (134-434); RBC 4.26 M/mm3 (3.60-5.2); URINE APPEARANCE CLEAR; URINE BACTERIA 1 /uL (0-1359); URINE BILIRUBIN NEGATIVE (NEGATIVE); URINE COLOR YELLOW; URINE GLUCOSE (UA) NEGATIVE (NEGATIVE); URINE KETONE 3+ (NEGATIVE); URINE LEUK ESTERASE NEGATIVE (NEGATIVE); URINE NITRITE NEGATIVE (NEGATIVE); URINE PROTEIN NEGATIVE (NEGATIVE); URINE RBC 5 /uL (0-23.9); URINE UROBILINOGEN 0.2 mg/dL (0.2-1.0); URINE WBC 1 /uL (0-25.8); WHITE BLOOD COUNT 9.8 K/mm3 (4.0-10.0)
[2024-04-25 18:26] LABS: POTASSIUM 4.2 mmol/L (3.5-5.1)
[2024-04-25 18:28] LABS: BLOOD UREA NITROGEN 11.4 mg/dL (7-18); CALCIUM 9.5 mg/dL (8.5-10.1)
[2024-04-25 18:29] LABS: ALBUMIN 4.1 g/dl (3.4-5.0)
[2024-04-25 18:31] LABS: CREATININE 0.7 mg/dL (0.55-1.3)
[2024-04-25 18:33] LABS: BILIRUBIN,TOTAL 1.1 mg/dL (0.2-1); TOT PROT 7.3 g/dl (6.4-8.2)
[2024-04-25] MEDS: DEXTROSE 5%-NORMAL SALINE 1,000 ML IV SCH (21:01)
[2024-04-25] MEDS ORDERED: PIPERACILLIN/TAZOB 4.5 GM 4.5 GM/100 ML BAG IVPB ONE (21:09)
[2024-04-25] MEDS: PIPERACILLIN/TAZOB 4.5 GM 4.5 GM in DEXTROSE 5%-WATER 100 ML IVPB ONE (21:30)
[2024-04-26] MEDS ORDERED: ACETAMINOPHEN 1000 MG/100 ML BAG IVPB PRN (00:36)
[2024-04-26] MEDS: ONDANSETRON 4 MG/2 ML VIAL IVPUSH SCH (01:15)
[2024-04-26] MEDS: PANTOPRAZOLE SODIUM 40 MG VIAL IVPUSH ONE (01:15)
[2024-04-26] MEDS: SODIUM CHLORIDE 1,000 ML IV SCH (04:04)
[2024-04-26] MEDS ORDERED: PIPERACILLIN/TAZOBACTAM 3.375 GM VIAL IVPB ONE (08:48)
[2024-04-26] MEDS: PIPERACILLIN/TAZOB 3.375 GM 3.375 GM in DEXTROSE 5%-WATER - 50 ML IVPB SCH ×2 (09:00→17:13)
[2024-04-26 09:37] LABS: BASO % 0.2 % (0-2.0); HEMATOCRIT 34.8 % (32.4-45.2); HEMOGLOBIN 11.7 GM/dL (10.7-15.3); MCH 31.3 pg (25.7-33.7); MCHC 33.7 g/dl (32.0-36.0); MEAN CELL VOLUME 92.7 fl (80-96); MEAN PLT VOLUME 7.6 fl (7.5-11.1); MONO % 8.2 % (3.8-10.2); NEUT % 77.6 % (42.8-82.8); PLATELET COUNT 203 10^3/uL (134-434); RBC 3.76 M/mm3 (3.60-5.2); RDW 13.9 % (11.6-15.6); WHITE BLOOD COUNT 7.6 K/mm3 (4.0-10.0)
[2024-04-26 09:39] LABS: INR 1.14 (0.83-1.09); PROTHROMBIN TIME (PATIENT) 13.1 SEC (9.7-13.0)
[2024-04-26] MEDS: ENOXAPARIN NA (PORCINE) 40 MG/0.4 ML DISP.SYRIN SQ SCH (09:42)
[2024-04-26 10:00] LABS: POTASSIUM 3.5 mmol/L (3.5-5.1)
[2024-04-26 10:02] LABS: CALCIUM 8.1 mg/dL (8.5-10.1)
[2024-04-26 10:03] LABS: MAGNESIUM 1.8 mg/dL (1.8-2.4)
[2024-04-26 10:06] LABS: CREATININE 0.5 mg/dL (0.55-1.3); PHOSPHOROUS 3.6 mg/dL (2.5-4.9)
[2024-04-26 10:07] LABS: BILIRUBIN,TOTAL 0.9 mg/dL (0.2-1); TOT PROT 5.8 g/dl (6.4-8.2)
[2024-04-26 10:24] LABS: ALBUMIN 3.2 g/dl (3.4-5.0)
[2024-04-26] MEDS: THYROID 15 MG TABLET PO SCH (11:20)
[2024-04-26] MEDS: ACETAMINOPHEN 325 MG TABLET (FP) PO PRN (11:41)
[2024-04-26] MEDS: THYROID 30 MG TABLET PO SCH (13:56)
[2024-04-26] MEDS: IBUPROFEN 400 MG TABLET (FP) PO ONE (15:10)
[2024-04-26] MEDS: SODIUM CHLORIDE 1,000 ML IV STA (18:21)
[2024-04-26 21:24] LABS: LACTIC ACID 2.1 mmol/L (0.4-2.0)
[2024-04-27] MEDS: SODIUM CHLORIDE 1,000 ML IV STA (00:31)
[2024-04-27 08:57] LABS: HEMATOCRIT 32.2 % (32.4-45.2); MCH 31.4 pg (25.7-33.7); MCHC 34.1 g/dl (32.0-36.0); MEAN CELL VOLUME 92.1 fl (80-96); MEAN PLT VOLUME 7.7 fl (7.5-11.1); PLATELET COUNT 164 10^3/uL (134-434); RBC 3.49 M/mm3 (3.60-5.2); RDW 14.1 % (11.6-15.6); WHITE BLOOD COUNT 4.9 K/mm3 (4.0-10.0)
[2024-04-27 09:13] LABS: POTASSIUM 3.3 mmol/L (3.5-5.1)
[2024-04-27 09:15] LABS: CALCIUM 8.2 mg/dL (8.5-10.1)
[2024-04-27 09:16] LABS: ALBUMIN 2.8 g/dl (3.4-5.0); BLOOD UREA NITROGEN 4.3 mg/dL (7-18)
[2024-04-27 09:19] LABS: CREATININE 0.5 mg/dL (0.55-1.3)
[2024-04-27 09:21] LABS: BILIRUBIN,TOTAL 0.6 mg/dL (0.2-1); TOT PROT 5.4 g/dl (6.4-8.2)
[2024-04-27] MEDS: POTASSIUM CHLORIDE TABS 20 MEQ TABLET.ER (FP) PO SCH (12:09)
[2024-04-27] MEDS: PANTOPRAZOLE SODIUM 40 MG VIAL IVPUSH SCH (12:09)
[2024-04-27] MEDS: PIPERACILLIN/TAZOB 3.375 GM 3.375 GM in DEXTROSE 5%-WATER - 50 ML IVPB SCH (17:28)
[2024-04-27 18:55] VITALS: RESP 18
[2024-04-27] MEDS: LACTATED RINGERS SOLUTION 1,000 ML/1,000 ML INFUS.BAG IV SCH (21:36)
[2024-04-28] MEDS: MELATONIN 5 MG TABLETS PO ONE (04:47)
[2024-04-28] MEDS: ACETAMINOPHEN 1000 MG/100 ML BAG IVPB ONE (04:47)
[2024-04-28] MEDS: IBUPROFEN 600 MG TABLET (FP) PO ONE (06:09)
[2024-04-28] MEDS ORDERED: ACETAMINOPHEN 325 MG TABLET (FP) PO PRN (08:39)
[2024-04-28 09:01] LABS: BASO % 0.4 % (0-2.0); HEMATOCRIT 33.5 % (32.4-45.2); HEMOGLOBIN 11.3 GM/dL (10.7-15.3); LYMPH % 22.8 % (8-40); MCHC 33.8 g/dl (32.0-36.0); MEAN CELL VOLUME 91.5 fl (80-96); MEAN PLT VOLUME 7.9 fl (7.5-11.1); MONO % 9.9 % (3.8-10.2); NEUT % 64.9 % (42.8-82.8); PLATELET COUNT 199 10^3/uL (134-434); RBC 3.66 M/mm3 (3.60-5.2); RDW 13.9 % (11.6-15.6); WHITE BLOOD COUNT 5.4 K/mm3 (4.0-10.0)
[2024-04-28 09:16] LABS: POTASSIUM 3.8 mmol/L (3.5-5.1)
[2024-04-28] MEDS ORDERED: IBUPROFEN 400 MG TABLET (FP) PO PRN (09:17)
[2024-04-28 09:22] LABS: CALCIUM 8.5 mg/dL (8.5-10.1)
[2024-04-28 09:23] LABS: ALBUMIN 2.9 g/dl (3.4-5.0); BLOOD UREA NITROGEN 4.6 mg/dL (7-18)
[2024-04-28 09:26] LABS: CREATININE 0.6 mg/dL (0.55-1.3)
[2024-04-28 09:28] LABS: BILIRUBIN,TOTAL 0.5 mg/dL (0.2-1); TOT PROT 5.9 g/dl (6.4-8.2)
[2024-04-28] MEDS: IBUPROFEN 600 MG TABLET (FP) PO PRN (09:29)
[2024-04-28 12:08] VITALS: BP 102/71; PULSE 74; TEMP 99
== END 2024-04-28 11:52 | disposition home or self-care (01) ==
LOC: JER 16:30 → JERBED 22:03 → INTOOBSV 23:26 → OBSVTOIN 23:26 → J5S 04-26 00:59
PROVIDERS: ADMIT Internal Medicine
PROC: 3E0337Z Introduction of Electrolytic and Water Balance Substance into Peripheral Vein, Percutaneous Approach (ICD-10-PCS; principal; 2024-04-25)
DX: K57.92 Diverticulitis of intestine, part unspecified, without perforation or abscess without bleeding (principal); E03.9 Hypothyroidism, unspecified; E07.9 Disorder of thyroid, unspecified; K44.9 Diaphragmatic hernia without obstruction or gangrene; Z86.16 Personal history of COVID-19; Z96.89 Presence of other specified functional implants; Z88.8 Allergy status to other drugs, medicaments and biological substances
CPT/HCPCS: 36415; 74177-TC; 80053; 81003; 82962; 83605; 83735; 84100; 84436; 84443; 85025; 85027; 85610; 86140; 87040; 87086; 87324; 87449; 93005; 93010; 99285-25; G0378; J0131; Q9967

== ENCOUNTER 2024-06-23 15:55 | Inpatient (IN) | payer OTHER ==
[2024-06-23] MEDS ORDERED: ONDANSETRON 4 MG/2 ML VIAL ONE (16:58)
[2024-06-23] MEDS ORDERED: morphine SULFATE 4 MG/ML VIAL ONE ×2 (16:58→22:54)
[2024-06-23] MEDS ORDERED: ACETAMINOPHEN INJECTION 100 ML ONE ×2 (16:58→23:33)
[2024-06-23 17:06] LABS: BASO % 0.3 % (0-2.0); EOS % 0.4 % (0-4.5); HEMATOCRIT 38.2 % (32.4-45.2); HEMOGLOBIN 12.5 GM/dL (10.7-15.3); LYMPH % 13.7 % (8-40); MCH 30.1 pg (25.7-33.7); MCHC 32.7 g/dl (32.0-36.0); MEAN CELL VOLUME 92.1 fl (80-96); MEAN PLT VOLUME 7.6 fl (7.5-11.1); MONO % 4.6 % (3.8-10.2); PLATELET COUNT 202 10^3/uL (134-434); RBC 4.15 M/mm3 (3.60-5.2)
[2024-06-23 17:09] LABS: INR 1.01 (0.83-1.09); PROTHROMBIN TIME (PATIENT) 11.4 SEC (9.7-13.0)
[2024-06-23 17:11] LABS: ACTIVATED PTT 22.8 SECONDS (25.2-36.5)
[2024-06-23] MEDS: SODIUM CHLORIDE 0.9% 500 ML INFUS.BAG IV ONE (17:13)
[2024-06-23] MEDS: ACETAMINOPHEN 1000 MG/100 ML BAG IVPB ONE ×2 (17:13→23:38)
[2024-06-23] MEDS: ONDANSETRON 4 MG/2 ML VIAL IVPUSH ONE (17:13)
[2024-06-23] MEDS: morphine CARPU-JECT 4 MG/1 ML DISP.SYRIN IVPUSH ONE ×2 (17:13→23:05)
[2024-06-23] MEDS: morphine SULFATE 4 MG/ML VIAL IVPUSH ONE (17:14)
[2024-06-23] MEDS: HYDROmorphone HCl 2 MG/ML VIAL IVPUSH ONE (17:15)
[2024-06-23 17:27] LABS: POTASSIUM 4.3 mmol/L (3.5-5.1)
[2024-06-23 17:29] LABS: CALCIUM 8.9 mg/dL (8.5-10.1)
[2024-06-23 17:30] LABS: ALBUMIN 3.6 g/dl (3.4-5.0); BLOOD UREA NITROGEN 12.4 mg/dL (7-18)
[2024-06-23 17:33] LABS: CREATININE 0.6 mg/dL (0.55-1.3)
[2024-06-23 17:34] LABS: BILIRUBIN,TOTAL 0.6 mg/dL (0.2-1); TOT PROT 6.8 g/dl (6.4-8.2)
[2024-06-23 17:42] LABS: LACTIC ACID 2.3 mmol/L (0.4-2.0)
[2024-06-23 18:27] LABS: URINE APPEARANCE CLEAR; URINE BILIRUBIN NEGATIVE (NEGATIVE); URINE COLOR YELLOW; URINE GLUCOSE (UA) NEGATIVE (NEGATIVE); URINE KETONE TRACE (NEGATIVE); URINE LEUK ESTERASE NEGATIVE (NEGATIVE); URINE NITRITE NEGATIVE (NEGATIVE); URINE PROTEIN NEGATIVE (NEGATIVE); URINE UROBILINOGEN 0.2 mg/dL (0.2-1.0)
[2024-06-23] MEDS: CIPROFLOXACIN 500 MG TABLET (RESTRICTED TO ID) PO ONE (22:33)
[2024-06-23] MEDS ORDERED: PIPERACILLIN/TAZOB 4.5 GM 4.5 GM/100 ML BAG IVPB ONE (22:37)
[2024-06-23] MEDS: PIPERACILLIN/TAZOB 4.5 GM 4.5 GM in DEXTROSE 5%-WATER 100 ML IVPB ONE (23:05)
[2024-06-23] MEDS ORDERED: ONDANSETRON 4 MG/2 ML VIAL IVPUSH PRN (23:58)
[2024-06-24] MEDS: LACTATED RINGERS SOLUTION 1000 ML INFUS.BAG IV ONE (00:04)
[2024-06-24] MEDS ORDERED: PIPERACILLIN/TAZOB 3.375 GM 3.375 GM in DEXTROSE 5%-WATER - 50 ML IVPB SCH (02:15)
[2024-06-24] MEDS: SODIUM CHLORIDE 1,000 ML IV SCH (03:43)
[2024-06-24] MEDS: PIPERACILLIN/TAZOB 3.375 GM 3.375 GM in DEXTROSE 5%-WATER - 50 ML IVPB SCH ×3 (03:44→17:10)
[2024-06-24 04:25] VITALS: BMI 18.6
[2024-06-24] MEDS: THYROID 15 MG TABLET PO SCH (09:30)
[2024-06-24 09:59] LABS: INR 1.07 (0.83-1.09); PROTHROMBIN TIME (PATIENT) 12.3 SEC (9.7-13.0)
[2024-06-24 10:03] LABS: HEMATOCRIT 35.4 % (32.4-45.2); MCH 30.6 pg (25.7-33.7); MCHC 33.9 g/dl (32.0-36.0); MEAN CELL VOLUME 90.4 fl (80-96); MEAN PLT VOLUME 8.3 fl (7.5-11.1); PLATELET COUNT 186 10^3/uL (134-434); RBC 3.92 M/mm3 (3.60-5.2); RDW 14.3 % (11.6-15.6); WHITE BLOOD COUNT 8.9 K/mm3 (4.0-10.0)
[2024-06-24 10:16] LABS: POTASSIUM 3.5 mmol/L (3.5-5.1)
[2024-06-24 10:20] LABS: ALBUMIN 3.3 g/dl (3.4-5.0); BLOOD UREA NITROGEN 10.9 mg/dL (7-18)
[2024-06-24 10:21] LABS: CALCIUM 8.7 mg/dL (8.5-10.1)
[2024-06-24 10:23] LABS: CREATININE 0.7 mg/dL (0.55-1.3); PHOSPHOROUS 3.6 mg/dL (2.5-4.9)
[2024-06-24 10:25] LABS: TOT PROT 6.1 g/dl (6.4-8.2)
[2024-06-24] MEDS: LACTATED RINGERS SOLUTION 1,000 ML/1,000 ML INFUS.BAG IV SCH (10:41)
[2024-06-24] MEDS: ACETAMINOPHEN 1000 MG/100 ML BAG IVPB SCH (15:50)
[2024-06-24] MEDS ORDERED: KETOROLAC TROMETHAMINE 15 MG/ML VIAL IVPUSH PRN (16:18)
[2024-06-25 09:28] LABS: BASO % 0.3 % (0-2.0); EOS % 0.9 % (0-4.5); HEMATOCRIT 33.8 % (32.4-45.2); HEMOGLOBIN 11.2 GM/dL (10.7-15.3); LYMPH % 17.8 % (8-40); MCH 30.4 pg (25.7-33.7); MCHC 33.1 g/dl (32.0-36.0); MEAN CELL VOLUME 91.6 fl (80-96); MEAN PLT VOLUME 8.5 fl (7.5-11.1); MONO % 5.1 % (3.8-10.2); NEUT % 75.9 % (42.8-82.8); PLATELET COUNT 159 10^3/uL (134-434); RBC 3.69 M/mm3 (3.60-5.2); WHITE BLOOD COUNT 6.2 K/mm3 (4.0-10.0)
[2024-06-25 09:57] LABS: CALCIUM 8.7 mg/dL (8.5-10.1)
[2024-06-25 09:58] LABS: BLOOD UREA NITROGEN 9.6 mg/dL (7-18); MAGNESIUM 1.9 mg/dL (1.8-2.4)
[2024-06-25 10:01] LABS: CREATININE 0.5 mg/dL (0.55-1.3); PHOSPHOROUS 3.2 mg/dL (2.5-4.9)
[2024-06-25 10:02] LABS: BILIRUBIN,TOTAL 0.9 mg/dL (0.2-1); TOT PROT 5.7 g/dl (6.4-8.2)
[2024-06-25] MEDS: LACTATED RINGERS SOLUTION 1,000 ML/1,000 ML INFUS.BAG IV SCH (17:58)
[2024-06-26] MEDS: HEPARIN NA (PORCINE) 5,000 UNITS/ML 1ML VIAL SQ SCH (05:57)
[2024-06-26 09:55] LABS: HEMATOCRIT 32.6 % (32.4-45.2); HEMOGLOBIN 10.9 GM/dL (10.7-15.3); MCH 30.4 pg (25.7-33.7); MCHC 33.2 g/dl (32.0-36.0); MEAN CELL VOLUME 91.3 fl (80-96); MEAN PLT VOLUME 8.9 fl (7.5-11.1); PLATELET COUNT 155 10^3/uL (134-434); RBC 3.57 M/mm3 (3.60-5.2); WHITE BLOOD COUNT 4.4 K/mm3 (4.0-10.0)
[2024-06-26 10:08] LABS: POTASSIUM 3.8 mmol/L (3.5-5.1)
[2024-06-26 10:09] LABS: BLOOD UREA NITROGEN 6.6 mg/dL (7-18)
[2024-06-26 10:13] LABS: CREATININE 0.6 mg/dL (0.55-1.3); PHOSPHOROUS 3.6 mg/dL (2.5-4.9)
[2024-06-27] MEDS: ACETAMINOPHEN 1000 MG/100 ML BAG IVPB PRN (05:37)
[2024-06-27] MEDS: IBUPROFEN 400 MG TABLET (FP) PO ONE (08:53)
[2024-06-27 09:41] LABS: BASO % 0.4 % (0-2.0); EOS % 2.2 % (0-4.5); HEMATOCRIT 30.8 % (32.4-45.2); HEMOGLOBIN 10.6 GM/dL (10.7-15.3); LYMPH % 29.2 % (8-40); MCH 30.7 pg (25.7-33.7); MCHC 34.3 g/dl (32.0-36.0); MEAN CELL VOLUME 89.6 fl (80-96); MEAN PLT VOLUME 8.2 fl (7.5-11.1); MONO % 7.7 % (3.8-10.2); NEUT % 60.5 % (42.8-82.8); PLATELET COUNT 189 10^3/uL (134-434); RBC 3.44 M/mm3 (3.60-5.2); RDW 13.8 % (11.6-15.6); WHITE BLOOD COUNT 3.8 K/mm3 (4.0-10.0)
[2024-06-27 09:59] LABS: POTASSIUM 3.8 mmol/L (3.5-5.1)
[2024-06-27 10:07] LABS: ALBUMIN 2.9 g/dl (3.4-5.0); BLOOD UREA NITROGEN 4.4 mg/dL (7-18); CALCIUM 8.5 mg/dL (8.5-10.1); MAGNESIUM 1.9 mg/dL (1.8-2.4)
[2024-06-27 10:11] LABS: CREATININE 0.6 mg/dL (0.55-1.3)
[2024-06-27 10:12] LABS: BILIRUBIN,TOTAL 0.7 mg/dL (0.2-1); TOT PROT 5.7 g/dl (6.4-8.2)
[2024-06-27 16:32] VITALS: BP 95/73; PULSE 71; RESP 18; TEMP 98.6
[2024-06-27] MEDS ORDERED: AMOX TR/POT CLAV 875MG/125MG TABLETS (FP) PO ONE (19:33)
== END 2024-06-27 21:10 | disposition home or self-care (01) | DRG 392 ==
LOC: JER 15:55 → JERBED 22:18 → J5S 06-24 03:14
PROVIDERS: ADMIT Internal Medicine
DX: K57.20 Diverticulitis of large intestine with perforation and abscess without bleeding (principal); E03.9 Hypothyroidism, unspecified; R10.32 Left lower quadrant pain; R11.0 Nausea; Z98.82 Breast implant status; K44.9 Diaphragmatic hernia without obstruction or gangrene
CPT/HCPCS: 36415; 74177-TC; 80048; 80053; 81003; 83605; 83690; 83735; 84100; 84484; 85025; 85027; 85610; 85730; 86850; 86900; 86901; 87040; 87086; 93005; 93010; 99285-25; J0131; J1644; Q9967

== ENCOUNTER 2024-07-13 20:03 | Inpatient (IN) | payer OTHER ==
[2024-07-13] MEDS ORDERED: ACETAMINOPHEN INJECTION 100 ML ONE (21:12)
[2024-07-13] MEDS: SODIUM CHLORIDE 0.9% 500 ML INFUS.BAG IV ONE (21:17)
[2024-07-13] MEDS: ACETAMINOPHEN 1000 MG/100 ML BAG IVPB ONE (21:17)
[2024-07-13 21:29] LABS: PH,URINE 8.5 (5.0-8.0); URINE APPEARANCE CLEAR; URINE BILIRUBIN NEGATIVE (NEGATIVE); URINE COLOR YELLOW; URINE GLUCOSE (UA) NEGATIVE (NEGATIVE); URINE KETONE NEGATIVE (NEGATIVE); URINE LEUK ESTERASE NEGATIVE (NEGATIVE); URINE NITRITE NEGATIVE (NEGATIVE); URINE PROTEIN NEGATIVE (NEGATIVE); URINE UROBILINOGEN 0.2 mg/dL (0.2-1.0)
[2024-07-13 21:36] LABS: BASO % 0.3 % (0-2.0); EOS % 0.4 % (0-4.5); HEMATOCRIT 37.2 % (32.4-45.2); HEMOGLOBIN 12.6 GM/dL (10.7-15.3); INR 0.97 (0.83-1.09); LYMPH % 16.4 % (8-40); MCH 30.4 pg (25.7-33.7); MCHC 33.8 g/dl (32.0-36.0); MEAN CELL VOLUME 89.8 fl (80-96); MONO % 2.6 % (3.8-10.2); NEUT % 80.3 % (42.8-82.8); RBC 4.14 M/mm3 (3.60-5.2); RDW 14.5 % (11.6-15.6); WHITE BLOOD COUNT 8.3 K/mm3 (4.0-10.0)
[2024-07-13 21:37] LABS: POTASSIUM 5.4 mmol/L (3.5-5.1)
[2024-07-13 21:40] LABS: CALCIUM 9.1 mg/dL (8.5-10.1)
[2024-07-13 21:41] LABS: ALBUMIN 3.5 g/dl (3.4-5.0)
[2024-07-13 21:43] LABS: BILIRUBIN,TOTAL 0.4 mg/dL (0.2-1)
[2024-07-13 21:44] LABS: CREATININE 0.6 mg/dL (0.55-1.3)
[2024-07-13 21:51] LABS: MEAN PLT VOLUME 8.5 fl (7.5-11.1); PLATELET COUNT 317 10^3/uL (134-434)
[2024-07-13] MEDS ORDERED: PIPERACILLIN/TAZOB 4.5 GM 4.5 GM/100 ML BAG IVPB ONE (23:25)
[2024-07-13] MEDS: PIPERACILLIN/TAZOB 4.5 GM 4.5 GM in DEXTROSE 5%-WATER 100 ML IVPB ONE (23:29)
[2024-07-13] MEDS ORDERED: morphine SULFATE 4 MG/ML VIAL ONE (23:30)
[2024-07-13] MEDS: morphine CARPU-JECT 4 MG/1 ML DISP.SYRIN IVPUSH ONE (23:35)
[2024-07-14] MEDS ORDERED: PROPOFOL 40 ML ONE (00:39)
[2024-07-14] MEDS ORDERED: ROCURONIUM BROMIDE 50 MG/5 ML SYRINGE ONE (00:39)
[2024-07-14] MEDS: LACTATED RINGERS SOLUTION 1,000 ML/1,000 ML INFUS.BAG IV SCH (00:40)
[2024-07-14] MEDS ORDERED: HYDROmorphone HCl 2 MG/ML VIAL ONE (01:37)
[2024-07-14] MEDS ORDERED: BENZOIN/ALOE VERA/STORAX/TOLU 58 ML BOTTLE ONE (02:46)
[2024-07-14] MEDS ORDERED: oxyCODONE HCL 5 MG TABLET PO PRN (03:01)
[2024-07-14] MEDS ORDERED: LACTATED RINGERS SOLUTION 1,000 ML/1,000 ML INFUS.BAG IV SCH (03:04)
[2024-07-14] MEDS ORDERED: ACETAMINOPHEN INJECTION 100 ML ONE (04:41)
[2024-07-14] MEDS: ACETAMINOPHEN 1000 MG/100 ML BAG IVPB SCH (04:44)
[2024-07-14] MEDS: LACTATED RINGERS SOLUTION 1,000 ML IV SCH ×2 (06:05→17:09)
[2024-07-14] MEDS: PIPERACILLIN/TAZOB 3.375 GM 3.375 GM in DEXTROSE 5%-WATER - 50 ML IVPB SCH ×2 (07:05→13:58)
[2024-07-14] MEDS ORDERED: ENOXAPARIN NA (PORCINE) 40 MG/0.4 ML DISP.SYRIN SQ SCH (10:00)
[2024-07-14 10:43] LABS: HEMATOCRIT 33.2 % (32.4-45.2); MCH 29.4 pg (25.7-33.7); MCHC 33.1 g/dl (32.0-36.0); MEAN CELL VOLUME 88.7 fl (80-96); MEAN PLT VOLUME 7.5 fl (7.5-11.1); PLATELET COUNT 263 10^3/uL (134-434); RBC 3.75 M/mm3 (3.60-5.2); RDW 14.4 % (11.6-15.6); WHITE BLOOD COUNT 9.8 K/mm3 (4.0-10.0)
[2024-07-14 10:50] LABS: POTASSIUM 4.4 mmol/L (3.5-5.1)
[2024-07-14 10:52] LABS: CALCIUM 8.4 mg/dL (8.5-10.1)
[2024-07-14 10:53] LABS: ALBUMIN 2.8 g/dl (3.4-5.0); BLOOD UREA NITROGEN 10.3 mg/dL (7-18)
[2024-07-14 10:56] LABS: CREATININE 0.7 mg/dL (0.55-1.3)
[2024-07-14 11:00] LABS: BILIRUBIN,TOTAL 0.7 mg/dL (0.2-1); TOT PROT 5.5 g/dl (6.4-8.2)
[2024-07-14 11:08] LABS: PHOSPHOROUS 3.7 mg/dL (2.5-4.9)
[2024-07-14] MEDS: KETOROLAC TROMETHAMINE 15 MG/ML VIAL IVPUSH PRN (13:59)
[2024-07-14] MEDS: THYROID 15 MG TABLET PO SCH (14:05)
[2024-07-14] MEDS: LACTATED RINGERS SOLUTION 1000 ML INFUS.BAG IV ONE (14:23)
[2024-07-14] MEDS: THYROID 30 MG TABLET PO SCH (17:37)
[2024-07-14] MEDS: KETOROLAC TROMETHAMINE 15 MG/ML VIAL IVPUSH SCH (20:24)
[2024-07-14] MEDS: BACLOFEN 10 MG TABLET (FP) PO SCH (22:27)
[2024-07-15] MEDS: ENOXAPARIN NA (PORCINE) 40 MG/0.4 ML DISP.SYRIN SQ SCH (11:03)
[2024-07-15 15:15] VITALS: BMI 18.3
[2024-07-15] MEDS ORDERED: PIPERACILLIN/TAZOB 3.375 GM 3.375 GM in DEXTROSE 5%-WATER - 50 ML IVPB SCH (18:00)
[2024-07-15] MEDS: BACITRACIN ZINC 15 GM TUBE TOPICAL OINTMENT TP SCH (23:00)
[2024-07-16 10:08] LABS: BASO % 0.2 % (0-2.0); EOS % 1.2 % (0-4.5); HEMOGLOBIN 10.8 GM/dL (10.7-15.3); LYMPH % 16.2 % (8-40); MCH 29.7 pg (25.7-33.7); MCHC 32.6 g/dl (32.0-36.0); MEAN PLT VOLUME 7.6 fl (7.5-11.1); MONO % 5.2 % (3.8-10.2); NEUT % 77.2 % (42.8-82.8); PLATELET COUNT 215 10^3/uL (134-434); RBC 3.63 M/mm3 (3.60-5.2); RDW 14.2 % (11.6-15.6); WHITE BLOOD COUNT 5.6 K/mm3 (4.0-10.0)
[2024-07-16 10:37] LABS: POTASSIUM 3.5 mmol/L (3.5-5.1)
[2024-07-16 10:42] LABS: CALCIUM 8.5 mg/dL (8.5-10.1)
[2024-07-16 10:43] LABS: ALBUMIN 2.6 g/dl (3.4-5.0); BLOOD UREA NITROGEN 12.2 mg/dL (7-18); MAGNESIUM 1.9 mg/dL (1.8-2.4)
[2024-07-16 10:46] LABS: CREATININE 0.5 mg/dL (0.55-1.3)
[2024-07-16 10:47] LABS: BILIRUBIN,TOTAL 0.9 mg/dL (0.2-1); TOT PROT 5.5 g/dl (6.4-8.2)
[2024-07-16] MEDS: POTASSIUM CHLORIDE ORAL LIQUID 20 MEQ/15 ML PO ONE (11:30)
[2024-07-17] MEDS: HYDROmorphone HCL CARPU-JECT 2 MG/1 ML DISP.SYRIN IVPB PRN (05:06)
[2024-07-17] MEDS: ONDANSETRON 4 MG/2 ML VIAL IVPUSH ONE (08:30)
[2024-07-17 09:16] LABS: BASO % 0.3 % (0-2.0); EOS % 1.7 % (0-4.5); HEMATOCRIT 33.1 % (32.4-45.2); HEMOGLOBIN 10.8 GM/dL (10.7-15.3); LYMPH % 21.4 % (8-40); MCH 29.5 pg (25.7-33.7); MCHC 32.7 g/dl (32.0-36.0); MEAN CELL VOLUME 90.1 fl (80-96); MEAN PLT VOLUME 7.1 fl (7.5-11.1); MONO % 6.3 % (3.8-10.2); NEUT % 70.3 % (42.8-82.8); PLATELET COUNT 234 10^3/uL (134-434); RBC 3.67 M/mm3 (3.60-5.2); RDW 14.2 % (11.6-15.6); WHITE BLOOD COUNT 4.1 K/mm3 (4.0-10.0)
[2024-07-17 09:43] LABS: ALBUMIN 2.6 g/dl (3.4-5.0)
[2024-07-17 09:45] LABS: BLOOD UREA NITROGEN 5.9 mg/dL (7-18)
[2024-07-17 09:46] LABS: CALCIUM 8.6 mg/dL (8.5-10.1)
[2024-07-17 09:47] LABS: MAGNESIUM 1.9 mg/dL (1.8-2.4)
[2024-07-17 09:49] LABS: CREATININE 0.5 mg/dL (0.55-1.3)
[2024-07-17 09:50] LABS: BILIRUBIN,TOTAL 0.5 mg/dL (0.2-1)
[2024-07-17 09:51] LABS: TOT PROT 5.5 g/dl (6.4-8.2)
[2024-07-18 09:40] LABS: BASO % 0.4 % (0-2.0); EOS % 2.3 % (0-4.5); HEMATOCRIT 29.5 % (32.4-45.2); HEMOGLOBIN 9.7 GM/dL (10.7-15.3); LYMPH % 36.3 % (8-40); MCH 29.5 pg (25.7-33.7); MEAN CELL VOLUME 89.5 fl (80-96); MEAN PLT VOLUME 7.2 fl (7.5-11.1); MONO % 7.7 % (3.8-10.2); NEUT % 53.3 % (42.8-82.8); PLATELET COUNT 233 10^3/uL (134-434); RDW 14.1 % (11.6-15.6); WHITE BLOOD COUNT 3.6 K/mm3 (4.0-10.0)
[2024-07-18 09:58] LABS: POTASSIUM 3.7 mmol/L (3.5-5.1)
[2024-07-18 10:04] LABS: CALCIUM 8.6 mg/dL (8.5-10.1)
[2024-07-18 10:05] LABS: ALBUMIN 2.4 g/dl (3.4-5.0); BLOOD UREA NITROGEN 3.8 mg/dL (7-18); MAGNESIUM 1.9 mg/dL (1.8-2.4)
[2024-07-18 10:08] LABS: CREATININE 0.5 mg/dL (0.55-1.3)
[2024-07-18 10:10] LABS: BILIRUBIN,TOTAL 0.3 mg/dL (0.2-1); TOT PROT 5.1 g/dl (6.4-8.2)
[2024-07-18] MEDS: THYROID 15 MG TABLET PO SCH (10:20)
[2024-07-18] MEDS: AMINO ACIDS/PROTEIN HYDROLYS 30 ML LIQUID.PKT PO SCH (11:57)
[2024-07-18] MEDS: FAMOTIDINE 20 MG TABLET PO SCH (14:42)
[2024-07-19 06:39] VITALS: RESP 18
[2024-07-19] MEDS: THYROID 15 MG TABLET PO SCH (06:42)
[2024-07-19] MEDS ORDERED: ACETAMINOPHEN 325 MG TABLET (FP) PO PRN (08:17)
[2024-07-19 10:09] LABS: BASO % 0.6 % (0-2.0); EOS % 2.2 % (0-4.5); HEMATOCRIT 30.7 % (32.4-45.2); HEMOGLOBIN 10.2 GM/dL (10.7-15.3); LYMPH % 36.4 % (8-40); MCH 30.1 pg (25.7-33.7); MCHC 33.3 g/dl (32.0-36.0); MEAN CELL VOLUME 90.4 fl (80-96); MONO % 6.7 % (3.8-10.2); NEUT % 54.1 % (42.8-82.8); PLATELET COUNT 245 10^3/uL (134-434); RDW 14.4 % (11.6-15.6); WHITE BLOOD COUNT 3.8 K/mm3 (4.0-10.0)
[2024-07-19 10:32] LABS: POTASSIUM 3.8 mmol/L (3.5-5.1)
[2024-07-19 10:53] LABS: ALBUMIN 2.6 g/dl (3.4-5.0); CALCIUM 8.8 mg/dL (8.5-10.1)
[2024-07-19 10:54] LABS: MAGNESIUM 1.9 mg/dL (1.8-2.4)
[2024-07-19 10:56] LABS: CREATININE 0.5 mg/dL (0.55-1.3)
[2024-07-19 10:58] LABS: BILIRUBIN,TOTAL 0.3 mg/dL (0.2-1)
[2024-07-19 11:00] LABS: TOT PROT 5.5 g/dl (6.4-8.2)
[2024-07-19 15:18] VITALS: BP 118/78; PULSE 79; TEMP 97.8
== END 2024-07-19 15:40 | disposition home or self-care (01) | DRG 221 ==
LOC: JER 20:03 → J8W 07-14 04:01 → JER 07-14 04:01 → JERBED 07-14 04:01 → J8W 07-14 05:40 → JER 07-14 05:47
PROVIDERS: ADMIT Internal Medicine; ATTEND Student in an Organized Health Care Education/Training Program
PROC: 0D1N0Z4 Bypass Sigmoid Colon to Cutaneous, Open Approach (ICD-10-PCS; 2024-07-14)
PROC: 0W9J0ZZ Drainage of Pelvic Cavity, Open Approach (ICD-10-PCS; 2024-07-14)
PROC: 0DTN0ZZ Resection of Sigmoid Colon, Open Approach (ICD-10-PCS; principal; 2024-07-14 00:30)
DX: K57.20 Diverticulitis of large intestine with perforation and abscess without bleeding (principal); E03.9 Hypothyroidism, unspecified; E87.5 Hyperkalemia; K66.8 Other specified disorders of peritoneum; N73.8 Other specified female pelvic inflammatory diseases; B96.20 Unspecified Escherichia coli [E. coli] as the cause of diseases classified elsewhere; Z88.1 Allergy status to other antibiotic agents
CPT/HCPCS: 36415; 74177-TC; 80053; 81003; 82962; 83605; 83690; 83735; 84100; 85025; 85027; 85610; 85730; 86850; 86900; 86901; 87070; 87086; 87186; 87205; 88307-TC; 93005; 93010; 94010; 94760; 97116-GP; 97161-GP; 99291; J0131; J0475; Q9967

== ENCOUNTER 2024-08-02 23:45 | Emergency (ER) | payer OTHER ==
[2024-08-02 23:51] VITALS: BMI 19.1
[2024-08-03] MEDS ORDERED: ACETAMINOPHEN INJECTION 100 ML ONE (00:46)
[2024-08-03] MEDS ORDERED: FAMOTIDINE 20 MG/50 ML IVPB 20 MG/50 ML MG IVPB ONE (00:46)
[2024-08-03] MEDS ORDERED: ONDANSETRON 4 MG/2 ML VIAL ONE (00:46)
[2024-08-03 01:19] LABS: BASO % 1.1 % (0-2.0); HEMATOCRIT 36.4 % (32.4-45.2); HEMOGLOBIN 12.1 GM/dL (10.7-15.3); LYMPH % 35.7 % (8-40); MCH 29.9 pg (25.7-33.7); MCHC 33.2 g/dl (32.0-36.0); MEAN CELL VOLUME 90.3 fl (80-96); MEAN PLT VOLUME 7.2 fl (7.5-11.1); MONO % 7.9 % (3.8-10.2); NEUT % 53.3 % (42.8-82.8); PLATELET COUNT 338 10^3/uL (134-434); RBC 4.03 M/mm3 (3.60-5.2); RDW 15.2 % (11.6-15.6); WHITE BLOOD COUNT 4.2 K/mm3 (4.0-10.0)
[2024-08-03] MEDS: ACETAMINOPHEN 1000 MG/100 ML BAG IVPB ONE (01:20)
[2024-08-03] MEDS: LACTATED RINGERS SOLUTION 1000 ML INFUS.BAG IV ONE (01:20)
[2024-08-03] MEDS: FAMOTIDINE 20 MG/50 ML IVPB 20 MG/50 ML MG IVPB ONE (01:20)
[2024-08-03] MEDS: ONDANSETRON 4 MG/2 ML VIAL IVPUSH ONE (01:20)
[2024-08-03 01:33] LABS: INR 0.9 (0.83-1.09); PROTHROMBIN TIME (PATIENT) 10.2 SEC (9.7-13.0)
[2024-08-03 01:36] LABS: ACTIVATED PTT 31.5 SECONDS (25.2-36.5)
[2024-08-03 01:44] LABS: POTASSIUM 4.5 mmol/L (3.5-5.1)
[2024-08-03 01:46] LABS: ALBUMIN 3.6 g/dl (3.4-5.0); CALCIUM 9.6 mg/dL (8.5-10.1); MAGNESIUM 2.1 mg/dL (1.8-2.4)
[2024-08-03 01:49] LABS: CREATININE 0.7 mg/dL (0.55-1.3)
[2024-08-03 01:50] LABS: BLOOD UREA NITROGEN 14.5 mg/dL (7-18)
[2024-08-03 01:51] LABS: BILIRUBIN,TOTAL 0.3 mg/dL (0.2-1)
[2024-08-03 06:42] VITALS: BP 100/68; PULSE 87; RESP 17; TEMP 97.8
== END 2024-08-03 07:05 | disposition home or self-care (01) ==
LOC: JER 23:45
PROC: 3E033GC Introduction of Other Therapeutic Substance into Peripheral Vein, Percutaneous Approach (ICD-10-PCS; principal; 2024-08-03)
DX: R10.32 Left lower quadrant pain (principal); R11.0 Nausea; R63.0 Anorexia; Z93.3 Colostomy status
CPT/HCPCS: 36415; 71046-TC-FY; 74177-TC; 80053; 83605; 83690; 83735; 85025; 85610; 85730; 86850; 86900; 86901; 99285-25; Q9967